=== PATIENT | female | born 1965 | race Caucasian/White ===

== ENCOUNTER 2016-08-07 05:28 | Emergency (ER) | payer OTHER ==
--- NOTE | 2016-08-07 05:41 | ERPHSYRPT ---
- History of Present Illness Time Seen by Provider: 08/07/16 05:40 Source: patient Exam Limitations: no limitations Patient Subjective Stated Complaint: pt reports headache with vomiting-states pain is right behind her eyes-reports nerve type pain radiating down bilateral arms Triage Nursing Assessment: pt pink warm et [id number] all questions correctly-no facial droop noted-moving all extremities with ease Physician History: 51-year-old female came to the emergency room with complaining of headache with pressure behind both eyes. Headache started one day ago Mike evening and she took some ibuprofen and tramadol, but without any help. Patient also has a history of high blood pressure. Patient had a same type of headache before. Patient states that usually her migraine starts from the occipital area, but now bothering her behind her eyes also and also having a vomiting. Patient denies any thunderclap type of headache. Patient denies any weakness. Timing/Duration: today Quality: aching Head Pain Location: frontal Severity of Pain-Max: moderate Severity of Pain-Current: moderate Recent Head Trauma: frequent headaches Associated Symptoms: nausea/vomiting, scotoma, sensitive to light, No confusion , No dizziness, No fatigue, No fever/chills, No flushing, No light-headedness, No loss of consciousness, No numbness in legs/feet, No sweating, No seizures, No speech problems, No stiff neck, No trouble walking, No vision changes, No visual disturbance, No weakness Allergies/Adverse Reactions: ciprofloxacin [From Cipro] Allergy (Severe, Verified 08/07/16 05:34) sully johnsons syndrome ciprofloxacin HCl [From Cipro] Allergy (Severe, Verified 08/07/16 05:34) gonzalez johnsons syndrome Penicillins Allergy (Severe, Verified 08/07/16 05:34) - told severe aspirin Allergy (Mild, Verified 08/07/16 05:34) hives rash swelling cephalexin monohydrate [From Keflex] Allergy (Mild, Verified 08/07/16 05:34) hives rash swelling codeine [Codeine] Allergy (Mild, Verified 08/07/16 05:34) unknown doxycycline calcium [From Vibramycin] Allergy (Mild, Verified 08/07/16 05:34) Nausea doxycycline hyclate [From Vibramycin] Allergy (Mild, Verified 08/07/16 05:34) Nausea doxycycline monohydrate [From Vibramycin] Allergy (Mild, Verified 08/07/16 05:34 ) nasuea pseudoephedrine HCl [From Sudafed] Allergy (Mild, Verified 08/07/16 05:34) hives rash swelling Sulfa (Sulfonamide Antibiotics) [Sulfa(Sulfonamide Antibiotics)] Allergy (Mild, Verified 08/07/16 05:34) rash swelling hives metronidazole [From Flagyl] Allergy (Verified 08/07/16 05:34) Rash Home Medications: Multivitamin [Multiple Vitamins] 1 tab PO DAILY 09/27/11 [History] Hydrochlorothiazide 12.5 mg PO DAILY 01/29/13 [History] Atorvastatin Calcium 40 mg PO DAILY 04/28/16 [History] Carvedilol 12.5 mg [Coreg 12.5 mg] 12.5 mg PO DAILY 04/28/16 [History] Levothyroxine Sodium 75 Mcg [Synthroid 75 Mcg] 75 mcg PO DAILY 04/28/16 [ History] Venlafaxine HCl ER 75 mg [Effexor XR 75 MG] 75 mg PO DAILY 04/28/16 [ History] Hx Tetanus, Diphtheria Vaccination/Date Given: No Hx Influenza Vaccination/Date Given: Yes Hx Pneumococcal Vaccination/Date Given: Yes Immunizations Up to Date: Yes - Review of Systems Constitutional: No Fever, No Chills, No Lethargy, No Malaise Eyes: No Symptoms Ears, Nose, & Throat: No Symptoms Respiratory: No Cough, No Dyspnea Cardiac: No Chest Pain, No Edema, No Syncope Abdominal/Gastrointestinal: Vomiting, No Abdominal Pain, No Nausea, No Diarrhea Genitourinary Symptoms: No Dysuria Musculoskeletal: No Back Pain, No Neck Pain Skin: No Rash Neurological: Headache, No Dizziness, No Focal Weakness, No Gait Changes, No Irritability, No Lethargy, No Parasthesia, No Seizure, No Sensory Changes, No Speech Changes Psychological: No Symptoms Endocrine: No Symptoms All Other Systems: Reviewed and Negative - Past Medical History Pertinent Past Medical History: Yes Neurological History: Migraines ENT History: No Pertinent History Cardiac History: High Cholesterol, Hypertension Respiratory History: No Pertinent History Endocrine Medical History: Hypothyroidism Musculoskeletal History: Fractures GI Medical History: Hemorrhoids History: No Pertinent History Psycho-Social History: No Pertinent History Female Reproductive Disorders: No Pertinent History Other Medical History: hx hepatitis a as a child - Past Surgical History Past Surgical History: Yes Neuro Surgical History: No Pertinent History Cardiac: No Pertinent History Respiratory: No Pertinent History Gastrointestinal: Appendectomy, Cholecystectomy Genitourinary: No Pertinent History Musculoskeletal: No Pertinent History Female Surgical History: Section, Other Other Surgical History: uterine ablation,bartholin cyst, wisdom teeth, carpal tunnel - Social History Smoking Status: Never smoker Exposure to second hand smoke: No Drug Use: none Patient Lives Alone: No - Female History Hx Now: No - Nursing Vital Signs Nursing Vital Signs: Initial Vital Signs Temperature 97.3 F Temperature Source Oral Pulse Rate 68 Respiratory Rate 18 Blood Pressure [Right Arm] 168/91 Pain Intensity 7 - Physical Exam General Appearance: no apparent distress Eye Exam: PERRL/EOMI Ears, Nose, Throat Exam: normal ENT inspection, moist mucous membranes Neck Exam: normal inspection, supple, full range of motion, No meningismus Respiratory Exam: normal breath sounds, lungs clear Cardiovascular Exam: regular rate/rhythm, normal heart sounds Gastrointestinal/Abdominal Exam: soft, No tenderness, No distention Back Exam: normal inspection, normal range of motion Mental Status Exam: alert, oriented x 3, 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 Exam: normal speech, PERRL, No facial droop Coordination/Gait Exam: normal cerebellar function Motor/Sensory Exam: no motor deficit, no sensory deficit Skin Exam: normal color, warm, dry, No rash SpO2: 96 Oxygen Delivery: Room Air - Course Nursing assessment & vital signs reviewed: Yes Ordered Tests: Medication Summary Discontinued Medications Generic Name Dose Route Start Last Admin Trade Name Samsonq PRN Reason Stop Dose Admin Carvedilol 12.5 mg 08/07/16 05:48 08/07/16 06:03 Coreg 12.5 Mg PO 08/07/16 05:49 12.5 mg STAT ONE Administration Ketorolac Tromethamine 60 mg 08/07/16 05:48 08/07/16 05:59 Toradol 30 Mg Injection IM 08/07/16 05:49 60 mg STAT ONE Administration Ketorolac Tromethamine Confirm 08/07/16 05:57 Toradol 30 Mg Injection Administered 08/07/16 05:58 Dose 60 mg .ROUTE .STK-MED ONE Orphenadrine Citrate 60 mg 08/07/16 05:49 08/07/16 05:59 Norflex 60 Mg/2 Ml IM 08/07/16 05:50 60 mg STAT ONE Administration Orphenadrine Citrate Confirm 08/07/16 05:57 Norflex 60 Mg/2 Ml Administered 08/07/16 05:58 Dose 60 mg .ROUTE .STK-MED ONE Promethazine HCl 25 mg 08/07/16 05:49 08/07/16 05:59 Phenergan 25 Mg Inj IM 08/07/16 05:50 25 mg STAT ONE Administration Promethazine HCl Confirm 08/07/16 05:57 Phenergan 25 Mg Inj Administered 08/07/16 05:58 Dose 25 mg .ROUTE .STK-MED ONE - Progress Progress: re-examined Air Movement: good Blood Culture(s) Obtained: No Antibiotics given: No Counseled pt/family regarding: diagnosis, need for follow-up - Departure Time of Disposition: 06:31 Departure Disposition: Home Clinical Impression: Migraine Qualifiers: Migraine type: with aura Status migrainosus presence: without status migrainosus Intractability: intractable Qualified Code(s): G43.119 - Migraine with aura, intractable, without status migrainosus Hypertension Qualifiers: Hypertension type: essential hypertension Qualified Code(s): I10 - Essential ( primary) hypertension Condition: Stable Critical Care Time: No Referrals: RAOUL MENDIOLA [Primary Care Provider] - Instructions: Headache, Migraine Additional Instructions: HEADACHE 1. After discharge from the emergency department, you should rest at home in a cool, dark, quiet place for 12-24 hours. 2. If any of the following signs or symptoms are noticed, you should be re- evaluated right away: A. Visual changes B. Stiff Neck C. Change in quality or location of pain D. Fever E. Recurrent vomiting 3. If pain medications were prescribed or given, they may cause drowsiness. Please follow the instructions given to you. Please take your medication as prescribed if given. If symptoms recur or get worse, come back to the emergency room if you cannot reach your primary care physician, or call your primary care physician for an appointment. Again if your symptoms get worse, come back to the emergency room. Thanks for visiting emergency room, and let us take care of you.
[2016-08-07] MEDS ORDERED: COREG 12.5 MG PO ONE (05:48)
[2016-08-07] MEDS ORDERED: TORAdol 30 mg Injection IM ONE (05:48)
[2016-08-07] MEDS ORDERED: Phenergan 25 MG INJ IM ONE (05:49)
[2016-08-07] MEDS ORDERED: Norflex 60 MG/2 ML IM ONE (05:49)
[2016-08-07] MEDS ORDERED: Phenergan 25 MG INJ ONE (05:57)
[2016-08-07] MEDS ORDERED: Norflex 60 MG/2 ML ONE (05:57)
[2016-08-07] MEDS ORDERED: TORAdol 30 mg Injection ONE (05:57)
[2016-08-07 06:16] VITALS: BP 168/91; PULSE 68
[2016-08-07 06:32] VITALS: O2SAT 96
== END 2016-08-07 06:39 | disposition home or self-care (01) ==
LOC: ED 05:28
DX: G43.119 Migraine with aura, intractable, without status migrainosus (principal); I10 Essential (primary) hypertension
CPT/HCPCS: 96372; 99284; J1885; J2360; J2550; A9270-GY